=== PATIENT | male | born 1950 | race Caucasian/White ===

== ENCOUNTER 2024-07-03 19:25 | Inpatient (IN) | payer OTHER, MEDICAID ==
[~2024-07-03] VITALS: Ht 175.3 cm; Wt 75.3 kg
[2024-07-03 19:48] VITALS: BP 124/51; TEMP 98; O2SAT 94
[2024-07-03 20:00] LABS: BASOPHILS % (AUTO) 0.5 % (0.0-2.0); EOSINOPHILS # (AUTO) 0.2 K/uL (0.0-0.7); EOSINOPHILS % (AUTO) 3.1 % (0.0-6.0); HEMATOCRIT 36 % (39-51); HEMOGLOBIN 11.5 g/dL (13.5-17.5); LYMPHOCYTES # (AUTO) 0.5 K/uL (0.8-4.8); LYMPHOCYTES % (AUTO) 8.1 % (20.0-44.0); MEAN CORPUSCULAR HEMOGLOBIN 29 PG (26.0-33.0); MEAN CORPUSCULAR HGB CONC 32 g/dl (31.0-36.0); MEAN CORPUSCULAR VOLUME 90 fL (80-96); MONOCYTES # (AUTO) 0.4 K/uL (0.1-1.30); MONOCYTES % (AUTO) 6.2 % (2.0-12.0); NEUTROPHILS # (AUTO) 4.7 K/uL (1.8-8.9); NEUTROPHILS % (AUTO) 82.1 % (43.0-81.0); PLATELET COUNT (AUTO) 143 K/uL (150-450); RED CELL DISTRIBUTION WIDTH 16.7 % (11.5-15.0); WHITE BLOOD COUNT (AUTO) 5.8 K/uL (4.3-11.0)
[2024-07-03] MEDS ORDERED: IV NS 0.9% 250 ML IV ONE (20:00)
[2024-07-03] MEDS ORDERED: IOHEXOL-350 100 ML VIAL IV ONE (20:01)
[2024-07-03 20:12] LABS: CALCIUM, SERUM 9.5 mg/dL (8.5-10.1); CARBON DIOXIDE 30 mmol/L (21-32); CHLORIDE 91 mmol/L (98-107); CREATININE 3.6 mg/dL (0.6-1.3); GLUCOSE 217 mg/dL (74-106); INR 1.12 (0.91-1.10); PARTIAL THROMBOPLASTIN TIME 30.3 SEC (24.3-34.3); POTASSIUM 4.9 mmol/L (3.5-5.1); PROTHROMBIN TIME 11.4 SECS (9.2-11.1); SODIUM SERUM 126 mmol/L (136-145); UREA NITROGEN, BLOOD 74 mg/dL (7-18)
[2024-07-03 20:19] LABS: LACTIC ACID 1.2 mmol/L (0.4-2.0)
[2024-07-03 20:26] LABS: ALANINE AMINOTRANSFERASE 31 U/L (12-78); ALKALINE PHOSPHATASE 145 U/L (46-116); ASPARTATE AMINOTRANSFERASE 35 U/L (15-37); BILIRUBIN,DIRECT 0.2 mg/dL (0.0-0.2); BILIRUBIN,TOTAL 0.4 mg/dL (0.2-1.0); TOTAL PROTEIN, SERUM 9.7 g/dL (6.4-8.2)
[2024-07-03] MEDS: IV NS 0.9% 1,000 ML BAG IV ONE (23:37)
[2024-07-04] MEDS ORDERED: CEFTRIAXONE 1 G in IV D5W 50 ML IV SCH ×2 (00:30→21:00)
[2024-07-04] MEDS ORDERED: AZITHROMYCIN 500 MG VIAL ONE (01:31)
[2024-07-04] MEDS ORDERED: CEFTRIAXONE 1 G VIAL ONE (01:41)
[2024-07-04] MEDS: AZITHROMYCIN 500 MG in IV D5W 250 ML IV SCH (01:53)
[2024-07-04] MEDS: CEFTRIAXONE 1 G in IV D5W 50 ML IV ONE (03:32)
[2024-07-04] MEDS: BLOOD SUGAR DIAGNOSTIC 1 EACH STRIP IN SCH (06:05)
[2024-07-04] MEDS ORDERED: NAPH1POW3 GT (08:56)
[2024-07-04] MEDS ORDERED: GLUC3SPR BNOSTRILS (08:56)
[2024-07-04] MEDS ORDERED: CALC-494 GT (08:56)
[2024-07-04] MEDS ORDERED: HEPA50008 SQ (08:56)
[2024-07-04] MEDS ORDERED: CHOL500062 GT (08:56)
[2024-07-04] MEDS ORDERED: FOLI0.8T23 GT (08:56)
[2024-07-04] MEDS ORDERED: LACT10SO29 GT (08:56)
[2024-07-04] MEDS ORDERED: LORA-259 GT (08:56)
[2024-07-04] MEDS ORDERED: MIDO10TA GT ×3 (08:56)
[2024-07-04] MEDS ORDERED: SCOP1PAT11 TD (08:56)
[2024-07-04] MEDS ORDERED: BISA10SU11 RC (08:56)
[2024-07-04] MEDS ORDERED: DOCU100C36 GT (08:56)
[2024-07-04] MEDS ORDERED: MONT10TA22 GT (08:56)
[2024-07-04] MEDS ORDERED: ASPIRIN 81 MG TAB.CHEW GT SCH ×2 (09:00)
[2024-07-04 10:27] LABS: THYROID STIMULATING HORMONE 2.46 uIU/mL (0.358-3.74)
[2024-07-04] MEDS ORDERED: Medication Not On Formulary EA (Midodrine Hcl 10 MG) GT PRN (12:30)
[2024-07-04] MEDS ORDERED: BISACODYL SUPP (10 MG) 10 MG/SUPP.RECT SUPP.RECT RC PRN (12:30)
[2024-07-04] MEDS ORDERED: LORAZEPAM 1 MG TABLET GT PRN (12:30)
[2024-07-04] MEDS ORDERED: DOCUSATE SODIUM 100 MG CAPSULE PO SCH (21:00)
[2024-07-04] MEDS ORDERED: HEPARIN SODIUM, PORCINE 5000 UNITS/1 ML VIAL SQ SCH (21:00)
[2024-07-04] MEDS ORDERED: MIDODRINE HCL (5MG) 5 MG TABLET GT SCH (21:00)
[2024-07-04] MEDS ORDERED: MONTELUKAST SODIUM (10MG) 10 MG TABLET GT SCH (22:00)
[2024-07-05 08:06] LABS: FOLIC ACID > 20.0 ng/mL (>3.0)
[2024-07-05] MEDS ORDERED: LACTULOSE 10 G/15 ML UDC (PYXIS) GT SCH (09:00)
[2024-07-11 07:12] LABS: METHYLMALONIC ACID 670 nmol/L (0-378)
== END 2024-07-04 18:35 | disposition short-term general hospital (02) | DRG 208 ==
LOC: ER 19:27 → TELE1 22:43
PROVIDERS: ADMIT Internal Medicine; ATTEND Internal Medicine
PROC: 5A1935Z Respiratory Ventilation, Less than 24 Consecutive Hours (ICD-10-PCS; principal; 2024-07-03)
PROC: 5A1D70Z Performance of Urinary Filtration, Intermittent, Less than 6 Hours Per Day (ICD-10-PCS; 2024-07-04)
DX: J15.69 Pneumonia due to other Gram-negative bacteria (principal); I50.23 Acute on chronic systolic (congestive) heart failure; E43 Unspecified severe protein-calorie malnutrition; G93.41 Metabolic encephalopathy; N18.6 End stage renal disease; J96.20 Acute and chronic respiratory failure, unspecified whether with hypoxia or hypercapnia; E87.1 Hypo-osmolality and hyponatremia; J90 Pleural effusion, not elsewhere classified; Z99.11 Dependence on respirator [ventilator] status; Z93.0 Tracheostomy status; Z99.2 Dependence on renal dialysis; Z93.1 Gastrostomy status; R13.10 Dysphagia, unspecified; Z86.74 Personal history of sudden cardiac arrest; Z79.01 Long term (current) use of anticoagulants; Z79.899 Other long term (current) drug therapy; E88.09 Other disorders of plasma-protein metabolism, not elsewhere classified; D63.1 Anemia in chronic kidney disease; Z82.49 Family history of ischemic heart disease and other diseases of the circulatory system; Z88.8 Allergy status to other drugs, medicaments and biological substances; Z88.0 Allergy status to penicillin; Y95 Nosocomial condition; G31.84 Mild cognitive impairment of uncertain or unknown etiology
CPT/HCPCS: 31720; 36415; 70450-TC; 70496-TC; 70498-TC; 71045-TC; 80048-TC; 80076-TC; 82607-TC; 82962-TC; 83605-TC; 83921; 84425; 84443-TC; 84484-TC; 85025-TC; 85730-TC; 87040-TC; 87081-TC; 87086-TC; 90935-TC; 93307-TC; 94002-TC; 94799-TC; 97110-TC; 99082-TC; A4223; G0378; J0456; J0696; J7030; J7050; J7060; Q9967